=== PATIENT | female | born 1975 | race Caucasian/White ===

== ENCOUNTER 2020-02-07 23:21 | Emergency (ER) | payer OTHER, SELFPAY ==
--- NOTE | ~2020-02-07 | CT_ITS ---
EXAMINATION: CT abdomen pelvis w con EXAM DATE: 02/08/2020 01:54 INDICATION: Epigastric abdominal pain. TECHNIQUE: Spiral CT of the abdomen and pelvis was performed following intravenous injection of 100 m L Omnipaque 350. Axial, coronal and sagittal images were reviewed. The dose-length product (DLP) fo r this examination was 366.77 mGy-cm. The exposure was tailored according to patient size (auto mA e xposure control), and iterative reconstruction (ASIR) was used as additional dose reduction technique . There is no prior study for comparison. FINDINGS: The liver, spleen, adrenal glands and pancreas are unremarkable. Gallbladder is unremarkab le. No biliary obstruction. Portal and splenic veins are patent. Kidneys enhance symmetrically. T here is no hydronephrosis. 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 The uterus is unremarkable. Sm all amount of free pelvic fluid likely from recently ruptured ovarian cyst. The bladder is unremarka ble. There is no retroperitoneal or pelvic lymphadenopathy. The appendix is not positively visualized. There is no pericecal inflammatory change to suggest appe ndicitis. The stomach and small bowel are unremarkable. There is expected amount of colonic stool. No free intraperitoneal gas. The heart is normal in size. There are no pericardial or pleural e ffusions. The lung bases are unremarkable. Mild to moderate thoracic dextroscoliosis and thoracolum bar levoscoliosis. Breast implants. IMPRESSION: 1. No acute intra-abdominal findings. Reviewed, dictated and finalized at location A.
[2020-02-07 23:25] VITALS: BP 122/62; PULSE 89; RESP 16; TEMP 37.1; O2SAT 100
--- NOTE | 2020-02-07 23:41 | ED.ABDPAIN ---
HPI - Abdominal Pain General Chief Complaint: Abdominal Pain Stated Complaint: abd pain Time Seen by Provider: 02/07/20 23:33 Source: patient Mode of arrival: ambulatory Limitations: no limitations History of Present Illness HPI narrative: This patient is a 45 year old female who presents for evaluation of epigastric pain . She states she developed pain 2 days ago. Initially her pain was intermitent, but it has been constant since this morning. She has epigastric pain and it radiates around to right upper abdomen and right flank. She also developed nausea and vomiting 1 hour ago. She denies fever or chills. She had similar pain a few years ago, and she reports diagnosis of abdominal migraine. Related Data Home Medications Medication Instructions Recorded Confirmed quetiapine 25 mg tablet 25 mg PO QPM 03/19/19 05/31/19 rizatriptan 10 mg tablet 10 mg PO ONCE PRN 03/19/19 05/31/19 Adrenoplex 1 cap PO DAILY 05/16/19 05/31/19 Mag Glycinate 100 mg PO DAILY 05/16/19 05/31/19 Probiotic Gold Acidophilus 100 mg PO DAILY 05/16/19 05/31/19 cod liver oil 1 cap PO DAILY 05/16/19 05/31/19 vitamin B complex 1 tablet PO DAILY 05/16/19 05/31/19 zinc 50 mg PO DAILY 05/16/19 05/31/19 Allergies Allergy/AdvReac Type Severity Reaction Status Date / Time topiramate [From Topamax] Allergy Severe ARMS AND Verified 02/07/20 23:35 LEGS GO NUMB Review of Systems Review of Systems: All systems reviewed & are unremarkable except as noted in HPI and below Constitutional: Constitutional: Denies chills and Denies fever(s) Gastrointestinal: Gastrointestinal: Reports abdominal pain, Denies diarrhea, Reports nausea and Reports vomiting Genitourinary: Genitourinary: Denies hematuria and Denies dysuria Musculoskeletal: Musculoskeletal: Reports back pain PMFSH Social History Social History Smoking status: Never smoker Alcohol intake: current Gender identity (if verbalized by the patient): Female Exam Const: General: alert Orientation/consciousness: patient oriented x3 Other: mild distress due to pain Eyes: EOM: EOMs intact bilaterally Chest: Chest palpation & inspection: normal inspection of the chest Resp: Effort & Inspection: normal respiratory effort and no retractions Auscultation: clear to auscultation bilaterally Cardio: Rate: regular rate Rhythm: regular rhythm Heart sounds: no murmurs GI: GI Palp: Yes Soft to palpation, Yes Tenderness to palpation present (GI) (epigastric, RUQ), No Guarding due to palpation present (GI), No Rigid due to palpation and No Hernia present Skin: General skin exam: normal color Rashes: no rashes Neuro: General: patient oriented x3 and moves all extremities Psych: Mental Status: mental status grossly normal Course Reevaluation(s) Reevaluation #1: I have discussed with patient CT scan. No acute findings on scan. She will be treated for possible PUD. She feels better. Date: 02/08/20 Time: 02:59 Vital Signs Vital signs: Vital Signs Temperature 98.7 F 02/07/20 23:25 Pulse Rate 89 02/07/20 23:25 Respiratory Rate 16 02/07/20 23:25 Blood Pressure 122/62 02/07/20 23:25 Pulse Oximetry 100 02/07/20 23:25 Temperature 98.7 F 02/07/20 23:25 Pulse Rate 69 02/08/20 04:03 Respiratory Rate 18 02/08/20 04:03 Blood Pressure 105/51 L 02/08/20 04:03 Pulse Oximetry 98 02/08/20 04:03 MDM - Abdominal Pain Lab Data Attestation: I reviewed the patient's lab results. Result diagrams: 02/08/20 00:04 02/08/20 00:56 Labs: Lab Results 02/08/20 02/08/20 02/08/20 Range/Units 00:04 00:05 00:56 WBC 11.2 H (4.5-10.0) K/mm3 RBC 4.58 (4.2-5.4) M/mm3 Hgb 14.1 (12.0-15.0) g/dL Hct 40.8 (37.0-47.0) % MCV 89.1 (80-100) fl MCH 30.8 (26-34) pg MCHC 34.6 (32-36) g/dl RDW 12.4 (11.5-14.5) % Plt Count 262 (150-375) k/mm3 MP
[2020-02-08] MEDS: ONDANSETRON INJ 4 MG/2 ML VIAL IV PUSH (00:08)
[2020-02-08] MEDS: PANTOPRAZOLE SODIUM IV 40 MG VIAL IV PUSH (00:08)
[2020-02-08] MEDS: LACTATED RINGERS 1,000 ML 999 ML IV CONT (00:08)
[2020-02-08 00:15] LABS: Basophils Absolute Auto 0.1 K/mm3 (0.0-0.1); Basophils Percent Auto 0.5 % (0.2-1.2); Eosinophils Absolute Auto 0.3 K/mm3 (0-0.3); Eosinophils Percent Auto 2.3 % (0-4.4); Hematocrit 40.8 % (37.0-47.0); Hemoglobin 14.1 g/dL (12.0-15.0); Immature Granulocyte Absolute 0.03 K/mm3 (0.00-0.031); Immature Granulocyte Percent A 0.3 % (0-0.5); Lymphocytes Absolute Auto 2.08 K/mm3 (0.9-3.2); Lymphocytes Percent Auto 18.5 % (18.3-44.2); Mean Corpuscular HGB Conc 34.6 g/dl (32-36); Mean Corpuscular Hemoglobin 30.8 pg (26-34); Mean Corpuscular Volume 89.1 fl (80-100); Mean Platelet Volume 9.9 fl (7.4-10.4); Monocytes Absolute Auto 0.6 K/mm3 (0.1-0.6); Neutrophils Absolute Auto 8.2 K/mm3 (1.3-6.7); Neutrophils Percent Auto 73.4 % (45.5-73.1); Platelet Count Result 262 k/mm3 (150-375); Red Blood Count 4.58 M/mm3 (4.2-5.4); Red Cell Distribution Width 12.4 % (11.5-14.5); White Blood Count 11.2 K/mm3 (4.5-10.0)
[2020-02-08 00:18] LABS: Add Urine Microscopic? NO; Appearance Urine Clear (Clear); Bilirubin Urine Negative (Negative); Blood Urine Negative (Negative); Color Urine Yellow (Yellow); Glucose Urine UA Negative (Negative); Ketones Urine Negative (Negative); Leukocyte Esterase Ur Negative LEU/UL (Negative); Nitrate Urine Negative (Negative); Protein Urine Negative (Negative); Specific Grav Ur 1.014 (1.001-1.035); Urobilinogen Urine Negative mg/dL (<2.0)
[2020-02-08 01:14] LABS: Alanine Aminotransferase 12 U/L (4-35); Albumin Level 3.7 g/dL (3.5-5.1); Alkaline Phosphatase 46 U/L (38-126); Anion Gap 8 mmol/L (8-16); Aspartate Amino Transferase 17 U/L (14-36); Bilirubin,Total 0.2 mg/dL (0.2-1.3); Blood Urea Nitrogen 8 mg/dL (7-17); Calcium 8.6 mg/dL (8.4-10.2); Carbon Dioxide 24 mmol/L (22-30); Chloride 101 mmol/L (98-107); Estimated CRCL calculation 100 ml/min; Estimated Glomerular Filt Rate > 60; Glucose 106 mg/dL (65-105); Lipase 85 U/L (23-300); Potassium 3.6 mmol/L (3.4-5.0); Sodium 133 mmol/L (137-145)
[2020-02-08] MEDS: MORPHINE SULFATE (*CRX) 4 MG/ML INJ IV PUSH (01:56)
[2020-02-08 01:59] VITALS: BP 113/73; PULSE 65; RESP 18; O2SAT 98
[2020-02-08 03:06] VITALS: BP 102/63; PULSE 92; RESP 16; O2SAT 100
[2020-02-08 04:03] VITALS: BP 105/51; PULSE 69; RESP 18; O2SAT 98
--- NOTE | 2020-03-13 14:48 | PC.NURSE ---
LATE ENTRY This note is being entered to document information to the patient's record. The following information was omitted on [02/08/20], by [Brad Mcallister]. LR stopped at 0100 on 10/3 am.
== END 2020-02-08 04:06 | disposition home or self-care (01) ==
PROVIDERS: Emergency Provider General Practice; PCP Family Medicine Sports Medicine
DX: R10.13 Epigastric pain (principal)
CPT/HCPCS: 36415; 74177; 80053; 81003; 81025; 83690; 85025; 96365; 96366; 96375; 99284; C9113; J0131; J2270; J2405; J7120; Q9967

== ENCOUNTER 2023-11-07 15:34 | Emergency (ER) | payer OTHER, SELFPAY ==
--- NOTE | ~2023-11-07 | CT_ITS ---
EXAMINATION: CT abdomen pelvis w con DATE: 11/07/2023 17:06 INDICATION: RUQ pain TECHNIQUE: Computed tomography (CT) of the abdomen and pelvis was performed with 100 mL Omnipaque-350 intravenous contrast. Automated exposure control and iterative reconstruction technique were employe d. The dose-length product was 531.36 mGy-cm. COMPARISON: 02/08/2020. FINDINGS: Lower thorax: Bilateral breast implant ruptures. Liver: Enlarged. Biliary/Gallbladder: Gallbladder is normal. No bile duct dilation. Pancreas: No mass or duct dilation. Spleen: Granulomatous calcifications. Adrenals:No mass. Kidneys: No suspicious mass, obstructing stone, or hydronephrosis. Simple left upper pole cyst. GI tract: No small or large bowel dilation. Normal appendix. Mesentery/Peritoneum: No ascites, mass, or free air. Retroperitoneum: No mass. Pelvis: Pelvic organs are within normal limits. Soft Tissues: Small uncomplicated fat-containing umbilical and left inguinal hernias. Bones: No acute osseous finding. IMPRESSION: Hepatomegaly. Otherwise unremarkable CT abdomen and pelvis findings. Reviewed, dictated and finalized at location K.
[2023-11-07 15:35] VITALS: BP 152/69; PULSE 109; RESP 18; TEMP 37.1; O2SAT 100
[2023-11-07 16:16] LABS: Basophils Absolute Auto 0.1 K/mm3 (0.0-0.1); Basophils Percent Auto 0.8 % (0.2-1.2); Eosinophils Absolute Auto 0.2 K/mm3 (0-0.3); Eosinophils Percent Auto 2.1 % (0-4.4); Hematocrit 41.3 % (37.0-47.0); Hemoglobin 14.1 g/dL (12.0-15.0); Immature Granulocyte Absolute 0.02 K/mm3 (0.00-0.031); Immature Granulocyte Percent A 0.2 % (0-0.5); Lymphocytes Absolute Auto 2.05 K/mm3 (0.9-3.2); Mean Corpuscular HGB Conc 34.1 g/dl (32-36); Mean Corpuscular Hemoglobin 30.2 pg (26-34); Mean Corpuscular Volume 88.4 fl (80-100); Mean Platelet Volume 9.8 fl (7.4-10.4); Monocytes Absolute Auto 0.5 K/mm3 (0.1-0.6); Monocytes Percent Auto 5.5 % (2.6-8.5); Neutrophils Absolute Auto 5.8 K/mm3 (1.3-6.7); Neutrophils Percent Auto 67.4 % (45.5-73.1); Platelet Count Result 251 k/mm3 (150-375); Red Blood Count 4.67 M/mm3 (4.2-5.4); Red Cell Distribution Width 12.1 % (11.5-14.5); White Blood Count 8.5 K/mm3 (4.5-10.0)
[2023-11-07 16:18] LABS: Appearance Urine Clear (Clear); Bilirubin Urine Negative (Negative); Blood Urine Negative (Negative); Color Urine Yellow (Yellow); Glucose Urine UA Negative (Negative); Ketones Urine Negative (Negative); Leukocyte Esterase Ur Negative LEU/UL (Negative); Nitrate Urine Negative (Negative); Protein Urine Negative (Negative); Specific Grav Ur 1.006 (1.001-1.035); Urobilinogen Urine 0.2 mg/dL (<2.0)
--- NOTE | 2023-11-07 16:24 | ED.ABDPAIN ---
HPI - Abdominal Pain General Chief Complaint: Abdominal Pain Stated Complaint: abd pain Time Seen by Provider: 11/07/23 16:01 History of Present Illness HPI narrative: 48-year-old female history of abdominal migraines and chronic abdominal pain presents to the emergency room for evaluation of upper abdominal pain that radiates into her right upper quadrant and right flank. Patient states pain began this morning. Describes the pain as a hunger pain . Pain is worse at night and when supine. Denies any nausea vomiting or diarrhea. Denies constipation. States has had similar episodes of abdominal pain in the past. Admits to rare ETOH use. Denies fevers. Related Data Home Medications Medication Instructions Recorded Confirmed quetiapine 25 mg tablet (Seroquel) 25 mg PO QPM 03/19/19 05/31/19 rizatriptan 10 mg tablet (Maxalt) 10 mg PO ONCE PRN Migraine Headache 03/19/19 05/31/19 Adrenoplex 1 cap PO DAILY 05/16/19 05/31/19 Lactobacillus acidophilus 1 100 mg PO DAILY 05/16/19 05/31/19 billion cell capsule (Probiotic Gold Acidophilus) cod liver oil 1 cap PO DAILY 05/16/19 05/31/19 magnesium glycinate 100 mg (as 100 mg PO DAILY 05/16/19 05/31/19 glycinate) tablet (Mag Glycinate) vitamin B complex 1 tablet PO DAILY 05/16/19 05/31/19 zinc 50 mg tablet 50 mg PO DAILY 05/16/19 05/31/19 Allergies Allergy/AdvReac Type Severity Reaction Status Date / Time topiramate [From Topamax] Allergy Severe ARMS AND Verified 02/07/20 23:35 LEGS GO NUMB Review of Systems Review of Systems: ROS unremarkable except for noted in HPI PMFSH Past Medical History Medical History (Updated 11/07/23 @ 18:00 by Florin Mittal APRN) Allergic rhinitis Gastritis Insomnia Lipoma Migraine Surgical History Surgical History H/O breast augmentation H/O section History of esophagogastroduodenoscopy (EGD) S/P excision of lipoma Family History Family History Father Hypertension Acid reflux Unknown Cancer Other Family history of cardiovascular disease Social History Social History Smoking status: Never smoker Alcohol intake: current Gender identity (if verbalized by the patient): Female Exam Narrative: GENERAL: Well-appearing, well-nourished, no physical limitations, and in no acute distress. HEAD: Normocephalic, atraumatic. EYES: Conjunctivae normal, PERRLA and EOMI. CHEST: Clear to auscultation. No respiratory distress. No wheezes rales or rhonchi. HEART: Regular rate and rhythm. No murmur heard. Normal peripheral pulses. ABDOMEN: Soft, Epigastric and right upper quadrant tenderness, nondistended, normal active bowel sounds. BACK: No CVA tenderness EXTREMITIES: Normal range of motion. No edema. No clubbing or cyanosis SKIN: Warm, dry, no rash. No noted wounds NEURO: No focal deficits. Alert and oriented x3. MAEW. CN's II-XI intact bilaterally, normal gait PSYCH: Cooperative. Normal mood and affect. Course Vital Signs Vital signs: Vital Signs Temperature 37.1 C 11/07/23 15:35 Pulse Rate 109 H 11/07/23 15:35 Respiratory Rate 18 11/07/23 15:35 Blood Pressure 152/69 H 11/07/23 15:35 Pulse Oximetry 100 11/07/23 15:35 Oxygen Delivery Room Air 11/07/23 15:35 Temperature 37.1 C 11/07/23 15:35 Pulse Rate 109 H 11/07/23 15:35 Respiratory Rate 18 11/07/23 15:35 Blood Pressure 152/69 H 11/07/23 15:35 Pulse Oximetry 100 11/07/23 15:35 Oxygen Delivery Room Air 11/07/23 15:35 MDM - Abdominal Pain Lab Data 11/07/23 15:55 11/07/23 15:55 Labs: Lab Results 11/07/23 Range/Units 15:55 WBC 8.5 (4.5-10.0) K/mm3 RBC 4.67 (4.2-5.4) M/mm3 Hgb 14.1 (12.0-15.0) g/dL Hct 41.3 (37.0-47.0) % MCV 88.4 (80-100) fl MCH 30.2 (26-34)
[2023-11-07 16:25] LABS: Alanine Aminotransferase 15 U/L (6-35); Albumin Level 4.3 g/dL (3.5-5.1); Alkaline Phosphatase 56 U/L (38-126); Anion Gap 9 mmol/L (4-12); Aspartate Amino Transferase 17 U/L (14-36); Bilirubin,Total 0.5 mg/dL (0.2-1.3); Blood Urea Nitrogen 7 mg/dL (7-17); Carbon Dioxide 24 mmol/L (22-30); Chloride 104 mmol/L (98-107); Estimated CRCL calculation 97 ml/min; Estimated Glomerular Filt Rate > 60; Glucose 103 mg/dL (65-110); Lipase 90 U/L (23-300); Potassium 3.6 mmol/L (3.4-5.0); Sodium 137 mmol/L (137-145)
[2023-11-07 16:29] LABS: Add Urine Microscopic? NO
[2023-11-07] MEDS: SODIUM CHLORIDE 0.9% IV 1,000 ML 999 ML IV CONT (17:07)
[2023-11-07] MEDS: DICYCLOMINE HCL INJ 20 MG/2 ML VIAL IM (18:32)
[2023-11-07 18:39] VITALS: BP 116/71; PULSE 90; RESP 16; O2SAT 100
== END 2023-11-07 18:41 | disposition home or self-care (01) ==
PROVIDERS: Emergency Medicine; Emergency Provider Nurse Practitioner Family; PCP Family Medicine
DX: R10.10 Upper abdominal pain, unspecified (principal); Z79.899 Other long term (current) drug therapy; R16.0 Hepatomegaly, not elsewhere classified
CPT/HCPCS: 36415; 74177; 80053; 81003; 81025; 83690; 85025; 96360; 96372; 99284; J0500; J7030; Q9967